=== PATIENT | female | born 1995 | race Hispanic/Latino ===

== ENCOUNTER 2020-07-25 18:24 | Emergency (ER) | payer SELFPAY ==
[2020-07-25 18:52] LABS: Bilirubin,Urine NEG (Negative); Blood,Urine NEG (Negative); Color,Urine Yellow (Yellow); Protein,Urine <15 mg/dL mg/dL (Negative); Urobilinogen,Urine < 2.0 mg/dL (<2.0)
[2020-07-25 19:05] LABS: Basophils % (Auto) 0.2 % (0.0-1.8); Eosinophils # (Auto) 0.1 K/mm3 (0.0-0.4); Eosinophils % (Auto) 0.9 % (0.0-4.3); Hematocrit 36.7 % (30.3-42.9); Hemoglobin 12.9 gm/dl (10.1-14.3); Lymphocytes # (Auto) 2.3 K/mm3 (1.2-5.4); Lymphocytes % (Auto) 21.6 % (13.4-35.0); Mean Corpuscular HGB Conc 35 % (30-34); Mean Corpuscular Volume 89 fl (79-97); Monocytes # (Auto) 0.6 K/mm3 (0.0-0.8); Monocytes % (Auto) 5.7 % (0.0-7.3); Platelet Count 263 K/mm3 (140-440); Red Blood Count 4.12 M/mm3 (3.65-5.03); Red Cell Distribution Width 14.1 % (13.2-15.2)
[2020-07-25 19:19] LABS: Alanine Aminotransferase 15 units/L (7-56); Albumin 4.5 g/dL (3.9-5); Blood Urea Nitrogen 8 mg/dL (7-17); Calcium 9.4 mg/dL (8.4-10.2); Hemolysis Index 9
[2020-07-25 19:24] LABS: BUN/Creatinine Ratio 16
[2020-07-25] MEDS ORDERED: ACETAMINOPHEN 325 MG TAB PO ONE (19:41)
[2020-07-25] MEDS ORDERED: METOCLOPRAMIDE 10 MG TAB PO ONE (19:41)
--- NOTE | 2020-07-25 20:28 | Emergency Department Report ---
ED HPI - General Chief complaint: Vaginal Bleeding Stated complaint: POSS MISCARRIAGE Time Seen by Provider: 07/25/20 19:18 Source: patient Mode of arrival: Ambulatory Limitations: No Limitations - History of Present Illness Initial comments: pt is a 24 yo female who presents to the ED with c/o lower abd pain described as a cramping sensation that began yesterday. she has associated N/V/D and vaginal bleeding. she states it was heavier yesterday and passing clots but today she states it is just spotting. she states that she had a miscarriage in May 07 and has not had a cycle since then. PMHx PTSD. no allergies to meds. /P:2/A:8 - Related Data Previous Rx's Medication Instructions Recorded Last Taken Type Acetaminophen [Tylenol] 650 mg PO Q8HR PRN #20 capsule 07/25/20 Unknown Rx Metoclopramide [Reglan] 10 mg PO Q8HR PRN #10 tab 07/25/20 Unknown Rx cephALEXin [Keflex] 500 mg PO BID 7 Days #14 cap 07/25/20 Unknown Rx Allergies Allergy/AdvReac Type Severity Reaction Status Date / Time adhesive tape Allergy Rash Verified 07/25/20 18:25 metal Allergy Swelling Uncoded 07/25/20 18:25 ED Review of Systems ROS: Stated complaint: POSS MISCARRIAGE Other details as noted in HPI Comment: All other systems reviewed and negative ED Past Medical Hx - Past Medical History Previous Medical History?: Yes Hx Psychiatric Treatment: Yes (PTSD) Additional medical history: PTSD - Surgical History Past Surgical History?: Yes Additional Surgical History: 2 C SECTION - Social History Smoking Status: Former Smoker Substance Use Type: None - Medications Home Medications: Home Medications Medication Instructions Recorded Confirmed Last Taken Type Acetaminophen [Tylenol] 650 mg PO Q8HR PRN #20 capsule 07/25/20 Unknown Rx Metoclopramide [Reglan] 10 mg PO Q8HR PRN #10 tab 07/25/20 Unknown Rx cephALEXin [Keflex] 500 mg PO BID 7 Days #14 cap 07/25/20 Unknown Rx ED Physical Exam - General Limitations: No Limitations General appearance: alert, in no apparent distress - Head Head exam: Present: atraumatic, normocephalic - Eye Eye exam: Present: normal appearance - ENT ENT exam: Present: mucous membranes moist - Respiratory Respiratory exam: Present: normal lung sounds bilaterally. Absent: respiratory distress, wheezes, rales, rhonchi, stridor, chest wall tenderness, accessory muscle use, decreased breath sounds, prolonged expiratory - Cardiovascular Cardiovascular Exam: Present: regular rate, normal rhythm, normal heart sounds. Absent: systolic murmur, diastolic murmur, rubs, gallop - GI/Abdominal GI/Abdominal exam: Present: soft, normal bowel sounds. Absent: distended, tenderness, guarding, rebound, rigid - Neurological Exam Neurological exam: Present: alert, oriented X3 - Psychiatric Psychiatric exam: Present: normal affect, normal mood - Skin Skin exam: Present: warm, dry, intact ED Course Vital Signs 07/25/20 18:27 Temperature 98.1 F Pulse Rate 96 H Respiratory 18 Rate Blood Pressure 117/78 O2 Sat by Pulse 99 Oximetry ED Medical Decision Making - Lab Data Result diagrams: 07/25/20 18:41 07/25/20 18:41 - Radiology Data Radiology results: report reviewed ULTRASOUND OBSTETRIC INDICATION / CLINICAL INFORMATION: lower abd pain vag bleed. Clinical Gestational Age (GA: unknown TECHNIQUE: Transabdominal. And transvaginal COMPARISON: 05/07/2020 FINDINGS: GESTATIONAL SAC: Well-defined oval shape and intrauterine in location. YOLK SAC: No significant abnormality. EMBRYO/FETUS: No significant abnormality. - [place]-Rump Length = 3.4 cm = 6 weeks. 1 days - Heart Rate, beats per minute (if present) = 120 ADNEXA: No significant abnormality. FREE FLUID: Trace ADDITIONAL FINDINGS: Small subchorionic hemorrhage noted measuring 1.3 x 0.6 x 1.9 cm. IMPRESSION: 1. Single, living intrauterine with estimated sonographic age of 6 weeks.1days. 2. Small subchorionic hemorrhage. Signer Name: Marizol Mancilla MD Signed: 07/25/2020 9:36 PM Workstation Name: [id number] Transcribed By: Dictated By: MARIZOL MANCILLA Electronically Authenticated By: MARIZOL MANCILLA Signed Date/Time: 07/25/202135 DD/ 30 TD/TT: - Medical Decision Making pt is a 24 yo female who presents to the ED with c/o lower abd pain described as a cramping sensation that began yesterday. she has associated N/V/D and vaginal bleeding. she states it was heavier yesterday and passing clots but today she states it is just spotting. she states that she had a miscarriage in May 07 and has not had a cycle since then. PMHx PTSD. no allergies to meds. G :11/P:2/A:8. VSS. No abdominal tenderness on exam, no guarding, no rebound, no rigidity. Labs are stable. Patient is Rh[place] [id number]. UA shows evidence of UTI. OB US: 1. Single, living intrauterine with estimated sonographic age of 6 weeks.1days. 2. Small subchorionic hemorrhage. Discussed all results with patient, answered questions, discussed threatened miscarriage, discussed the need for close CARD CHECKER follow-up, discussed the importance of repeat hCG quant in 2 days. Patient given prescription for Keflex, Tylenol, Reglan. Advised patient Please take medication as prescribed. Increase your water intake. Please take a vitamin [id number]. Follow-up with your CARD CHECKER, you need to have close C[facility] follow-up. You need to have a repeat hCG quant in the next 2 days, may have this done with the CARD CHECKER, if you are unable to get into the CARD CHECK[facility] may return to emergency department. Today 07/25/2020 [place] [id number]. Return to emergency room for any new or worsening symptoms. - Differential Diagnosis IUP, ectopic, threat miscarriage, hemorrhagic cyst, subchorionic hemorr,UTI Critical care attestation.: If time is entered above; I have spent that time in minutes in the direct care of this critically ill patient, excluding procedure time. ED Disposition Clinical Impression: Abdominal cramping, Vaginal bleeding, Threatened miscarriage Subchorionic hemorrhage Qualifiers: Fetus number: single or unspecified fetus Trimester: first trimester Qualified Code(s): O41.8X10 - Other specified disorders of amniotic fluid and membranes, first trimester, not applicable or unspecified UTI (urinary tract infection) Qualifiers: Urinary tract infection type: acute cystitis Hematuria presence: without hematuria Qualified Code(s): N30.00 - Acute cystitis without hematuria Disposition: TO HOME OR SELFCARE Is pt being admited?: No Does the pt Need Aspirin: No Condition: Stable Instructions: Threatened Miscarriage (ED), Urinary Tract Infection in Women (ED) Additional Instructions: Please take medication as prescribed. Increase your water intake. Please take a vitamin [id number]. Follow-up with your CARD CHECKER, you need to have close CARD CHECKER follow-up. You need to have a repeat hCG quant in the next 2 days, may have this done with the CARD CHECKER, if you are unable to get into the CARD CHECKER may return to emergency department. Today 07/25/2020 [place] [id number]. Return to emergency room for any new or worsening symptoms. Prescriptions: cephALEXin [Keflex] 500 mg PO BID 7 Days #14 cap Metoclopramide [Reglan] 10 mg PO Q8HR PRN #10 tab PRN Reason: Nausea And Vomiting Acetaminophen [Tylenol] 650 mg PO Q8HR PRN #20 capsule PRN Reason: pain Referrals: [facility] [Provider Group] - 2-3 Days [facility] [Provider Group] - 2-3 Days [facility] [Provider Group] - 2-3 Days [facility] [Provider Group] - 2-3 Days [facility] [Provider Group] - 2-3 Days Time of Disposition: 21:54 Print Language: BELGIAN
[2020-07-25 20:29] VITALS: BP 117/78
--- NOTE | 2020-07-25 21:40 | Ultrasound Report ---
ULTRASOUND OBSTETRIC INDICATION / CLINICAL INFORMATION: lower abd pain vag bleed. Clinical Gestational Age (GA: unknown TECHNIQUE: Transabdominal. And transvaginal COMPARISON: 05/07/2020 FINDINGS: GESTATIONAL SAC: Well-defined oval shape and intrauterine in location. YOLK SAC: No significant abnormality. EMBRYO/FETUS: No significant abnormality. - [place]-Rump Length = 3.4 cm = 6 weeks. 1 days - Heart Rate, beats per minute (if present) = 120 ADNEXA: No significant abnormality. FREE FLUID: Trace ADDITIONAL FINDINGS: Small subchorionic hemorrhage noted measuring 1.3 x 0.6 x 1.9 cm. IMPRESSION: 1. Single, living intrauterine with estimated sonographic age of 6 weeks.1days. 2. Small subchorionic hemorrhage. Signer Name: River Monet MD Signed: 07/25/2020 9:36 PM Workstation Name: [id number]
--- NOTE | 2020-07-25 21:40 | Ultrasound Report ---
ULTRASOUND OBSTETRIC INDICATION / CLINICAL INFORMATION: lower abd pain vag bleed. Clinical Gestational Age (GA: unknown TECHNIQUE: Transabdominal. And transvaginal COMPARISON: 05/07/2020 FINDINGS: GESTATIONAL SAC: Well-defined oval shape and intrauterine in location. YOLK SAC: No significant abnormality. EMBRYO/FETUS: No significant abnormality. - [place]-Rump Length = 3.4 cm = 6 weeks. 1 days - Heart Rate, beats per minute (if present) = 120 ADNEXA: No significant abnormality. FREE FLUID: Trace ADDITIONAL FINDINGS: Small subchorionic hemorrhage noted measuring 1.3 x 0.6 x 1.9 cm. IMPRESSION: 1. Single, living intrauterine with estimated sonographic age of 6 weeks.1days. 2. Small subchorionic hemorrhage. Signer Name: River Monet MD Signed: 07/25/2020 9:36 PM Workstation Name: [id number]
== END 2020-07-25 22:00 | disposition home or self-care (01) ==
LOC: ED 18:24
DX: O20.0 Threatened abortion (principal); O23.41 Unspecified infection of urinary tract in pregnancy, first trimester; O41.8X10 Other specified disorders of amniotic fluid and membranes, first trimester, not applicable or unspecified; O99.341 Other mental disorders complicating pregnancy, first trimester; F43.11 Post-traumatic stress disorder, acute; Z3A.01 Less than 8 weeks gestation of pregnancy
CPT/HCPCS: 36415; 76801; 76817; 80053; 81001; 84702; 85025; 86900; 86901; 87086

== ENCOUNTER 2020-07-29 12:01 | Emergency (ER) | payer SELFPAY | END 2020-07-29 12:02 | disposition left against medical advice (07) | LOC: ED 12:01 | DX: M79.10 Myalgia, unspecified site (principal); Z53.21 Procedure and treatment not carried out due to patient leaving prior to being seen by health care provider ==

== ENCOUNTER 2020-07-29 21:49 | Emergency (ER) | payer SELFPAY ==
[2020-07-30 07:44] VITALS: BP 122/74
== END 2020-07-30 04:00 | disposition home or self-care (01) ==
LOC: ED 21:49
DX: Z32.00 Encounter for pregnancy test, result unknown (principal); Z53.21 Procedure and treatment not carried out due to patient leaving prior to being seen by health care provider
CPT/HCPCS: 36415; 84702

== ENCOUNTER 2022-03-17 08:52 | Emergency (ER) | payer MEDICAID ==
[2022-03-17] MEDS ORDERED: ONDANSETRON 4 MG/2 ML INJ IV ONE (09:07)
[2022-03-17] MEDS ORDERED: SODIUM CHLORIDE 0.9% 1000 ML 1,000 ML IV ONE (09:07)
--- NOTE | 2022-03-17 09:09 | Emergency Department Report ---
ED General Adult HPI - General Stated complaint: POSS EPTOPIC PUI?: No Time Seen by Provider: 03/17/22 09:07 Source: patient Mode of arrival: Wheelchair Limitations: No Limitations - History of Present Illness Initial comments: Patient is a 26-year-old female she comes to the emergency room with acute onset nausea and vomiting this morning. She also endorses vaginal bleeding. She states that she took 37 test at home and they were all positive. She cannot tell me her last menstrual cycle because she is on Depo. she states that she should not be able to get . She has not seen an PORTFOLIO DIRECTOR She has been 11 times. She has 3 living children. She denies any abdominal pain. Denies dysuria. Denies vaginal discharge. Denies back pain. Patient very argumentative and dramatic in triage. Argumentative with nursing staff. She is huddled over a trash can but has no vomiting. -: Sudden Quality: aching Consistency: constant Improves with: none Worsens with: none Associated Symptoms: nausea/vomiting. denies: confusion, chest pain, cough, diaphoresis, fever/chills, headaches, loss of appetite, malaise, rash, seizure, shortness of breath, syncope, weakness Treatments Prior to Arrival: none - Related Data Previous Rx's Medication Instructions Recorded Last Taken Type Ondansetron [Zofran Odt] 4 mg PO Q8HR PRN #10 tab.rapdis 03/17/22 Unknown Rx Allergies Allergy/AdvReac Type Severity Reaction Status Date / Time adhesive tape Allergy Rash Verified 07/25/20 18:25 metal Allergy Swelling Uncoded 07/25/20 18:25 ED Review of Systems ROS: Stated complaint: POSS EPTOPIC Other details as noted in HPI Comment: All other systems reviewed and negative ED Past Medical Hx - Past Medical History Previous Medical History?: Yes Hx Psychiatric Treatment: Yes (PTSD) Additional medical history: Reports hyperemesis and tachycardia with - Surgical History Past Surgical History?: Yes Additional Surgical History: 2 C SECTION - Family History Family history: no significant - Social History Smoking Status: Former Smoker Substance Use Type: Marijuana - Medications Home Medications: Home Medications Medication Instructions Recorded Confirmed Last Taken Type Ondansetron [Zofran Odt] 4 mg PO Q8HR PRN #10 tab.rapdis 03/17/22 Unknown Rx ED Physical Exam - General General appearance: alert - Head Head exam: Present: atraumatic, normocephalic - Eye Eye exam: Present: normal appearance - ENT ENT exam: Present: mucous membranes moist - Neck Neck exam: Present: normal inspection - Respiratory Respiratory exam: Present: normal lung sounds bilaterally. Absent: respiratory distress - Cardiovascular Cardiovascular Exam: Present: regular rate, normal rhythm. Absent: systolic murmur, diastolic murmur, rubs, gallop - GI/Abdominal GI/Abdominal exam: Present: soft, normal bowel sounds - Extremities Exam Extremities exam: Present: normal inspection - Back Exam Back exam: Present: normal inspection - Neurological Exam Neurological exam: Present: alert, oriented X3 - Skin Skin exam: Present: warm, dry, intact, pallor. Absent: rash ED Course Vital Signs 03/17/22 03/17/22 03/17/22 09:07 11:19 12:23 Temperature 97.4 F L 98.1 F 98.1 F Pulse Rate 79 77 71 Respiratory 16 20 20 Rate Blood Pressure 119/66 126/84 122/79 [Left] O2 Sat by Pulse 99 100 100 Oximetry ED Medical Decision Making - Lab Data Result diagrams: 03/17/22 09:14 03/17/22 09:14 - Radiology Data Radiology results: report reviewed, image reviewed see report - Medical Decision Making Labs and urine analysis ordered. Vital Signs 03/17/22 09:07 Temperature 97.4 F L Pulse Rate 79 Respiratory 16 Rate Blood Pressure 119/66 [Left] O2 Sat by Pulse 99 Oximetry labs/ua noted Vital Signs 03/17/22 03/17/22 09:07 11:19 Temperature 97.4 F L 98.1 F Pulse Rate 79 77 Respiratory 16 20 Rate Blood Pressure 119/66 126/84 [Left] O2 Sat by Pulse 99 100 Oximetry Lab Results 03/17/22 03/17/22 03/17/22 Range/Units 09:14 09:14 09:14 WBC 11.2 H (4.5-11.0) K/mm3 RBC 4.62 (3.65-5.03) M/mm3 Hgb 13.8 (10.1-14.3) gm/dl Hct 41.0 (30.3-42.9) % MCV 89 (79-97) fl MCH 30 (28-32) pg MCHC 34 (30-34) % RDW 13.4 (13.2-15.2) % Plt Count 297 (140-440) K/mm3 Lymph % (Auto) 9.4 L (13.4-35.0) % Roberts % (Auto) 3.2 (0.0-7.3) % Eos % (Auto) 0.2 (0.0-4.3) % Baso % (Auto) 0.2 (0.0-1.8) % Lymph # (Auto) 1.0 L (1.2-5.4) K/mm3 Roberts # (Auto) 0.4 (0.0-0.8) K/mm3 Eos # (Auto) 0.0 (0.0-0.4) K/mm3 Baso # (Auto) 0.0 (0.0-0.1) K/mm3 Seg Neutrophils % 87.0 H (40.0-70.0) % Seg Neutrophils # 9.7 H (1.8-7.7) K/mm3 Sodium 137 (137-145) mmol/L Potassium 3.6 (3.6-5.0) mmol/L Chloride 104.3 (98-107) mmol/L Carbon Dioxide 16 L (22-30) mmol/L Anion Gap 20 mmol/L BUN 9 (7-17) mg/dL Creatinine 0.5 L (0.6-1.2) mg/dL Estimated GFR > 60 ml/min BUN/Creatinine Ratio 18 % Glucose 124 H (65-100) mg/dL Calcium 10.0 (8.4-10.2) mg/dL Total Bilirubin 0.30 (0.1-1.2) mg/dL Direct Bilirubin < 0.2 (0-0.2) mg/dL Indirect Bilirubin 0.1 mg/dL AST 14 (5-40) units/L ALT 14 (7-56) units/L Alkaline Phosphatase 48 (35-129) units/L Total Protein 7.2 (6.3-8.2) g/dL Albumin 4.9 (3.9-5) g/dL Albumin/Globulin Ratio 2.1 % Lipase 31 (13-60) units/L HCG, Quant 3245 H (0-4) mIU/mL Urine Color (Yellow) Urine Turbidity (Clear) Urine pH (5.0-7.0) Ur Specific [place] (1.003-1.030) Urine Protein (Negative) mg/dL Urine Glucose (UA) (Negative) mg/dL Urine Ketones (Negative) mg/dL Urine Blood (Negative) Urine Nitrite (Negative) Ur Reducing Substances Urine Bilirubin (Negative) Urine Ictotest Urine Urobilinogen (<2.0) mg/dL Ur Leukocyte Esterase (Negative) Urine WBC (Auto) (0.0-6.0) /HPF Urine RBC (Auto) (0.0-6.0) /HPF U Epithel Cells (Auto) (0-13.0) /HPF Urine Mucus /HPF Urine HCG, Qual (Negative) 03/17/22 Range/Units 11:19 WBC (4.5-11.0) K/mm3 RBC (3.65-5.03) M/mm3 Hgb (10.1-14.3) gm/dl Hct (30.3-42.9) % MCV (79-97) fl MCH (28-32) pg MCHC (30-34) % RDW (13.2-15.2) % Plt Count (140-440) K/mm3 Lymph % (Auto) (13.4-35.0) % Roberts % (Auto) (0.0-7.3) % Eos % (Auto) (0.0-4.3) % Baso % (Auto) (0.0-1.8) % Lymph # (Auto) (1.2-5.4) K/mm3 Roberts # (Auto) (0.0-0.8) K/mm3 Eos # (Auto) (0.0-0.4) K/mm3 Baso # (Auto) (0.0-0.1) K/mm3 Seg Neutrophils % (40.0-70.0) % Seg Neutrophils # (1.8-7.7) K/mm3 Sodium (137-145) mmol/L Potassium (3.6-5.0) mmol/L Chloride (98-107) mmol/L Carbon Dioxide (22-30) mmol/L Anion Gap mmol/L BUN (7-17) mg/dL Creatinine (0.6-1.2) mg/dL Estimated GFR ml/min BUN/Creatinine Ratio % Glucose (65-100) mg/dL Calcium (8.4-10.2) mg/dL Total Bilirubin (0.1-1.2) mg/dL Direct Bilirubin (0-0.2) mg/dL Indirect Bilirubin mg/dL AST (5-40) units/L ALT (7-56) units/L Alkaline Phosphatase (35-129) units/L Total Protein (6.3-8.2) g/dL Albumin (3.9-5) g/dL Albumin/Globulin Ratio % Lipase (13-60) units/L HCG, Quant (0-4) mIU/mL Urine Color Yellow (Yellow) Urine Turbidity Slightly-cloudy (Clear) Urine pH 6.0 (5.0-7.0) Ur Specific [place] 1.024 (1.003-1.030) Urine Protein 30 mg/dl (Negative) mg/dL Urine Glucose (UA) Neg (Negative) mg/dL Urine Ketones 80 (Negative) mg/dL Urine Blood Neg (Negative) Urine Nitrite Neg (Negative) Ur Reducing Substances Not Reportable Urine Bilirubin Neg (Negative) Urine Ictotest Not Reportable Urine Urobilinogen < 2.0 (<2.0) mg/dL Ur Leukocyte Esterase Neg (Negative) Urine WBC (Auto) 2.0 (0.0-6.0) /HPF Urine RBC (Auto) 2.0 (0.0-6.0) /HPF U Epithel Cells (Auto) 28.0 H (0-13.0) /HPF Urine Mucus 3+ /HPF Urine HCG, Qual Positive A (Negative) us noted= pt refused transvag Patient given p.o. Zofran. On discharge exam she is asleep in the bed-no further vomiting On discharge exam patient taking p.o. She is ambulatory, not ill nontoxic- appearing. Patient's blood type A+ Patient being discharged home with discharge plan of care including diet, activity, medication and follow-up. She verbalizes understanding of need to follow-up in 48 hours for repeat lab work. - Differential Diagnosis Rule out , rule out UTI, rule out ectopic, rule out AB Critical care attestation.: If time is entered above; I have spent that time in minutes in the direct care of this critically ill patient, excluding procedure time. ED Disposition Clinical Impression: Nausea and vomiting in , Vaginal bleeding during Qualifiers: Weeks of gestation: unspecified Qualified Code(s): Z34.90 - Encounter for supervision of normal , unspecified, unspecified trimester Disposition: 01 HOME / SELF CARE / HOMELESS Is pt being admited?: No Does the pt Need Aspirin: No Condition: Stable Instructions: First Trimester of , [id number] Additional Instructions: Pelvic rest Tylenol for pain Zofran for nausea follow-up with PORTFOLIO DIRECTOR in 48 hours for interval exam and blood work Referral below Prescriptions: Ondansetron [Zofran Odt] 4 mg PO Q8HR PRN #10 tab.rapdis PRN Reason: Vomiting Referrals: PRIMARY CARE, [Primary Care Provider] - 3-5 Days ELAINA HERNANDEZ MD [Staff Physician] - 3-5 Days Time of Disposition: 12:10
[2022-03-17 09:37] LABS: Basophils % (Auto) 0.2 % (0.0-1.8); Eosinophils % (Auto) 0.2 % (0.0-4.3); Hemoglobin 13.8 gm/dl (10.1-14.3); Lymphocytes % (Auto) 9.4 % (13.4-35.0); Mean Corpuscular HGB Conc 34 % (30-34); Mean Corpuscular Volume 89 fl (79-97); Monocytes # (Auto) 0.4 K/mm3 (0.0-0.8); Monocytes % (Auto) 3.2 % (0.0-7.3); Platelet Count 297 K/mm3 (140-440); Red Blood Count 4.62 M/mm3 (3.65-5.03); Red Cell Distribution Width 13.4 % (13.2-15.2)
[2022-03-17 09:54] LABS: Alanine Aminotransferase 14 units/L (7-56); Albumin 4.9 g/dL (3.9-5); Blood Urea Nitrogen 9 mg/dL (7-17); Hemolysis Index 14
[2022-03-17 10:07] LABS: BUN/Creatinine Ratio 18; Bilirubin,Direct < 0.2 mg/dL (0-0.2)
[2022-03-17] MEDS ORDERED: ONDANSETRON 4 MG ODT TAB PO ONE (11:23)
[2022-03-17 11:33] LABS: HCG Qualitative,Urine Positive (Negative)
[2022-03-17 11:37] LABS: Bilirubin,Urine NEG (Negative); Blood,Urine NEG (Negative); Color,Urine Yellow (Yellow); Mucus,Urine 3+ /HPF; Urobilinogen,Urine < 2.0 mg/dL (<2.0)
--- NOTE | 2022-03-17 11:49 | Ultrasound Report ---
ULTRASOUND OBSTETRIC INDICATION / CLINICAL INFORMATION: vag bleed in preg. Clinical Gestational Age (GA) in weeks, days: 4, 1 TECHNIQUE: Transabdominal. Patient declined transvaginal imaging. COMPARISON: None available. FINDINGS: There is an 8 mm cystic structure seen in the uterus that could represent a gestational sac. This wou ld correspond to a 5 week 4 day gestation. No pole or yolk sac is seen. There is a small amount of fluid adjacent to this which may represent subchorionic bleed. This measures 0.9 x 2.8 x 1.2 cm.. ADNEXA: The right ovary measures 2.7 cm. The left ovary measures 3.5 cm. No adnexal masses are seen. FREE FLUID: None. ADDITIONAL FINDINGS: None. IMPRESSION: 1. There is a possible gestational sac in the uterine cavity measuring 8 mm. No yolk sac or simin e is identified within this. There is some fluid adjacent to this structure which may represent a sub chorionic bleed. At this time no viable documented. It is possible this could represent a v [place] early intrauterine with subchorionic bleed. Correlation with serum beta hCG level is re commended. Follow-up ultrasound should be obtained as clinically warranted to further evaluate for po ssible viable . Signer Name: Abe Cooper MD Signed: 03/17/2022 11:44 AM Workstation Name: [id number]
[2022-03-17 12:24] VITALS: BP 122/79
== END 2022-03-17 12:23 | disposition home or self-care (01) ==
LOC: ED 08:52
DX: O20.9 Hemorrhage in early pregnancy, unspecified (principal); F12.90 Cannabis use, unspecified, uncomplicated; Z87.891 Personal history of nicotine dependence; Z91.09 Other allergy status, other than to drugs and biological substances; Z3A.01 Less than 8 weeks gestation of pregnancy
CPT/HCPCS: 36415; 76801; 80048; 80076; 81001; 81025; 83690; 84702; 85025; 99284; J7030; J3490; Q0162